=== PATIENT | female | born 1975 | race Caucasian/White ===

== ENCOUNTER 2017-02-08 16:33 | Emergency (ER) | payer BC, OTHER ==
[~2017-02-08] VITALS: Ht 170.2 cm; Wt 91.0 kg
[~2017-02-08 16:33] MED LIST: ALBU1AER9 INH; AMPH20TA2 PO; CLON0.5T3 PO; DIVA250T PO; FOLI1TAB7 PO; HYDR200T5 PO; IBUP-1050 PO; METF1TAB53 PO; METH2.5T PO; SERT100T PO
[2017-02-08 16:35] VITALS: TEMP 36.7; Ht 170.2 cm; Wt 91.0 kg
--- NOTE | 2017-02-08 16:54 | EMERGENCY ROOM VISIT NOTE ---
History Report prepared by Lisa: Rogelio Medley Under the Supervision of: Dr. Jesse Fletcher D.O. First contact with patient: 16:39 Chief Complaint: RESPIRATORY PROBLEMS Stated Complaint: CHEST/BACK PAIN,SOB History of Present Illness The patient is a 41 year old female who presents to the Emergency Room with complaints of worsening right sided rib pain beginning 5 days ago. She feels like she bruised her ribs, and is having shortness of breath and pain in her chest. The patient has a history of PE and was on blood thinners about 6 years ago, but is not currently on blood thinners. She has a history of lupus, factor V lieden, diabetes, and a recent abscess which is doing better. The patient has recently had an increase in her dosage of methotrexate. She denies having any nausea, vomiting, or abdominal pain, but notes she has cramping in her legs because she drives often, though adds this is not new. She admits to smoking tobacco, and reports a history of a hysterectomy due to a large fibroid tumor. She last saw her PCP, Dr. Roberson, 6 months ago. Source of History: patient Onset: 5 days ago Position: other (right sided ribs) Quality: other (rib pain) Timing: worsening Associated Symptoms: + SOB, + chest pain, No abdominal pain, No nausea, No vomiting Note: The patient reports leg cramping. Review of Systems See HPI for pertinent positives & negatives. A total of 10 systems reviewed and were otherwise negative. Past Medical & Surgical Medical Problems: (1) Back pain, lumbosacral (2) Bronchitis (3) Diabetes (4) Fibroids (5) Pelvic pain (6) Pulmonary embolism Family History Cancer Diabetes mellitus Hypertension Social History Smoking Status: Current Every Day Smoker Drug Use: none Marital Status: Housing Status: lives with family Current/Historical Medications Scheduled Divalproex Sodium (Depakote Er), 500 MG PO HS Folic Acid (Folvite), 1 TAB PO DAILY Hydroxychloroquine Sulfate (Plaquenil), 400 MG PO HS Metformin Hcl (Glucophage Ext Rel), 1,000 MG PO BID Methotrexate (Methotrexate), 20 MG PO WK Prednisone (Prednisone), 5 MG PO Q2D Sertraline Hcl (Zoloft), 200 MG PO HS Scheduled PRN Ibuprofen (Advil), 800 MG PO UD PRN for Pain Allergies Coded Allergies: No Known Allergies (Verified , NKA, 02/08/17) Physical Exam Vital Signs Date Time Temp Pulse Resp B/P Pulse Ox O2 Delivery O2 Flow Rate FiO2 02/08/17 17:54 113 18 127/74 97 Room Air 02/08/17 17:23 95 Room Air 02/08/17 17:20 95 Room Air 02/08/17 17:20 95 Room Air 02/08/17 16:52 108 02/08/17 16:35 36.7 87 18 116/78 95 Room Air Physical Exam GENERAL: Patient is awake alert, somewhat anxious appearing and uncomfortable. EYES: The conjunctivae are clear. The pupils are round and reactive. EARS, NOSE, MOUTH AND THROAT: The nose is without any evidence of any deformity. Mucous membranes are moist tongue is midline NECK: The neck is nontender and supple. RESPIRATORY: Normal respiratory effort is noted there is no evidence of wheezing rhonchi or rales CARDIOVASCULAR: Tachycardic but regular. No definite murmurs. GASTROINTESTINAL: The abdomen is soft. Bowel sounds are present in all quadrants. Abdomen is nontender MUSCULOSKELETAL/EXTREMITIES: There is no evidence of gross deformity full range of motion is noted in the hips and shoulders SKIN: There is no obvious evidence of any rash. There are no petechiae, pallor or cyanosis noted. NEUROLOGIC: Patient is awake alert and oriented x3 Medical Decision & Procedures ER Provider Diagnostic Interpretation: Radiology results as stated below per my review and radiologist interpretation: SINGLE VIEW CHEST FINDINGS: An AP, portable, upright chest radiograph is compared to study dated 07/23/2016. The cardiomediastinal silhouette is unremarkable. The lungs and pleural spaces are clear. No pneumothorax is seen. The bony thorax is grossly intact. IMPRESSION: No active disease in the chest. Electronically signed by: Talib Stephenson M.D. 02/08/2017 6:09 PM Dictated Date/Time: 02/08/2017 6:[address] ANGIOGRAM OF THE CHEST FINDINGS: Thyroid: Imaged portions of the thyroid gland are normal in size and attenuation. Thoracic aorta: The thoracic aorta is normal in caliber and demonstrates standard 3-vessel arch anatomy. No dissection is seen. Pulmonary vasculature: The pulmonary trunk is normal in caliber. There are no filling defects identified in main, lobar, or segmental pulmonary branches to suggest pulmonary embolus. Heart: The heart is normal in size and configuration, and without pericardial effusion. Lungs and pleural spaces: Emphysema is observed. There is no airspace consolidation or pleural effusion. The trachea and central airways are clear. Mediastinum: There is no mediastinal lymphadenopathy. Allyssa: Clear. Axillae: There is no axillary lymphadenopathy. Upper abdomen: Partially visualized upper abdominal viscera is within normal limits. Skeletal structures: No lytic or blastic bony lesions are seen. IMPRESSION: 1. There is no evidence of pulmonary embolus in the main, lobar, or segmental pulmonary arteries. 2. Emphysema. 3. No airspace consolidation or pleural effusion is seen. Electronically signed by: Talib Stephenson M.D. 02/08/2017 6:37 PM Dictated Date/Time: 02/08/2017 6:31 PM Laboratory Results 02/08/17 16:50 Red Blood Count 4.52, Mean Corpuscular Volume 88.7, Mean Corpuscular Hemoglobin 31.0, Mean Corpuscular Hemoglobin Concent 34.9, Mean Platelet Volume 8.6, Neutrophils (%) (Auto) 55.8, Lymphocytes (%) (Auto) 37.6, Monocytes (%) (Auto) 5.1, Eosinophils (%) (Auto) 1.1, Basophils (%) (Auto) 0.2, Neutrophils # (Auto) 5.31, Lymphocytes # (Auto) 3.58, Monocytes # (Auto) 0.49, Eosinophils # (Auto) 0.10, Basophils # (Auto) 0.02 02/08/17 16:50 Test 02/08/17 16:50 02/08/17 16:55 02/08/17 17:28 White Blood Count 9.52 K/uL (4.8-10.8) Red Blood Count 4.52 M/uL (4.2-5.4) Hemoglobin 14.0 g/dL (12.0-16.0) Hematocrit 40.1 % (37-47) Mean Corpuscular Volume 88.7 fL (80-100) Mean Corpuscular Hemoglobin 31.0 pg (25-34) Mean Corpuscular Hemoglobin Concent 34.9 g/dl (32-36) Platelet Count 309 K/uL (130-400) Mean Platelet Volume 8.6 fL (7.4-10.4) Neutrophils (%) (Auto) 55.8 % Lymphocytes (%) (Auto) 37.6 % Monocytes (%) (Auto) 5.1 % Eosinophils (%) (Auto) 1.1 % Basophils (%) (Auto) 0.2 % Neutrophils # (Auto) 5.31 K/uL (1.4-6.5) Lymphocytes # (Auto) 3.58 K/uL (1.2-3.4) Monocytes # (Auto) 0.49 K/uL (0.11-0.59) Eosinophils # (Auto) 0.10 K/uL (0-0.5) Basophils # (Auto) 0.02 K/uL (0-0.2) RDW Standard Deviation 46.8 fL (36.4-46.3) RDW Coefficient of Variation 14.4 % (11.5-14.5) Immature Granulocyte % (Auto) 0.2 % Immature Granulocyte # (Auto) 0.02 K/uL (0.00-0.02) Prothrombin Time 10.7 SECONDS (9.0-12.0) Prothromb Time International Ratio 1.0 (0.9-1.1) Activated Partial Thromboplast Time 27.7 SECONDS (21.0-31.0) Partial Thromboplastin Ratio 1.1 Anion Gap 14.0 mmol/L (3-11) Est Creatinine Clear Calc Drug Dose 65.3 ml/min Estimated GFR () 71.7 Estimated GFR (Non- 61.9 BUN/Creatinine Ratio 10.1 (10-20) Calcium Level 8.5 mg/dl (8.5-10.1) Total Bilirubin 0.2 mg/dl (0.2-1) Aspartate Amino Transf (AST/SGOT) 9 U/L (15-37) Alanine Aminotransferase (ALT/SGPT) 21 U/L (12-78) Alkaline Phosphatase 48 U/L (45-117) Troponin I < 0.015 ng/ml (0-0.045) Total Protein 7.6 gm/dl (6.4-8.2) Albumin 3.4 gm/dl (3.4-5.0) Globulin 4.2 gm/dl (2.5-4.0) Albumin/Globulin Ratio 0.8 (0.9-2) Bedside D-Dimer 353 ng/mlFEU (0-450) Urine Color YELLOW Urine Appearance CLEAR (CLEAR) Urine pH 5.0 (4.5-7.5) Urine Specific Tillson 1.020 (1.000-1.030) Urine Protein NEG (NEG) Urine Glucose (UA) 2+ (NEG) Urine Ketones TRACE (NEG) Urine Occult Blood NEG (NEG) Urine Nitrite NEG (NEG) Urine Bilirubin NEG (NEG) Urine Urobilinogen NEG (NEG) Urine Leukocyte Esterase NEG (NEG) Laboratory results per my review. Medications Administered Medications (Trade) Dose Ordered Sig/Tevin Route Start Time Stop Time Status Last Admin Dose Admin Sodium Chloride (Nss 1000ml) 1,000 ml @ 999 mls/hr Q1H1M STAT IV 02/08/17 17:50 02/08/17 18:50 DC 02/08/17 17:54 999 MLS/HR ECG Indication: chest pain Rate (beats per minute): 116 Rhythm: sinus tachycardia Findings: PVC, other (No acute ST segment abnormalities) ED Course 164: The patient was evaluated in room A11B. A complete history and physical examination were performed. 1749: Ordered NSS 1,000 ml @ 999 mls/hr IV. 1908: Ordered Toradol Inj 30 mg IV. 1914: Ordered Oxycodone HCl 1 homepack PO. 1929: Upon reevaluation, the patient is doing well. I discussed the results and treatment plan with the patient. She verbalized agreement of the treatment plan. The patient was discharged home. Medical Decision Differential diagnosis: Etiologies such as cardiac ischemia, aortic dissection, pulmonary embolism, pneumonia, pneumothorax, musculoskeletal, infections, pericarditis, myocarditis , esophageal rupture, gastrointestinal, as well as others were entertained. Nursing notes reviewed. The patient is a 41-year-old female has a history of lupus anticoagulant as well as systemic lupus who presented to the emergency apartment for an evaluation of chest pain. The patient has a history of pulmonary embolism and states that her symptoms are similar to previous episodes of pulmonary embolism. The patient was treated with IV fluids IV pain medication in the emergency department. She was reevaluated multiple times. Her d-dimer was negative but given her risk factors a CT the chest was obtained. I discussed the patient's laboratory radiographic studies with her. She was encouraged to rest and avoid any strenuous activity. She was encouraged to call her primary care physician to schedule a follow-up appointment. She was also encouraged to return to the emergency apartment immediately if symptoms change worsen or the need arises. I do feel that her symptoms are more likely consistent with pleuritic pain especially given her history of lupus. I discussed this with her. She does state that she has not had pleurisy in the past. This reason she was encouraged to definitely follow-up with her primary your physician as well as her consumer insight analyst. Impression Primary Impression: Right-sided chest pain Additional Impression: Pleurisy Scribe Attestation The scribe's documentation has been prepared under my direction and personally reviewed by me in its entirety. I confirm that the note above accurately reflects all work, treatment, procedures, and medical decision making performed by me. Departure Information Dispostion Home / Self-Care Referrals Tahir Roberson Jr,D.O. (PCP) Patient Instructions ED Chest Pain Atypical [facility], [facility], Pleurisy Additional Instructions Call your family doctor in the morning to schedule follow-up appointment. Rest and avoid any strenuous activity. Continue using Motrin and Tylenol as directed for pain. Continue all other medications as prescribed. Problem Qualifiers
[2017-02-08 17:04] LABS: BASO % 0.2 %; BASO ABS # 0.02 K/uL (0-0.2); COMPLETE YES; EOS % 1.1 %; HEMATOCRIT 40.1 % (37-47); IG% 0.2 %; LYMPH % 37.6 %; LYMPH ABS # 3.58 K/uL (1.2-3.4); MEAN CELL VOLUME 88.7 fL (80-100); MEAN CORPUSCULAR HGB CONC 34.9 g/dl (32-36); MEAN PLATELET VOLUME 8.6 fL (7.4-10.4); MONO % 5.1 %; NEUT % 55.8 %; PLATELET COUNT 309 K/uL (130-400); RED BLOOD COUNT 4.52 M/uL (4.2-5.4); WHITE BLOOD COUNT 9.52 K/uL (4.8-10.8)
[2017-02-08 17:18] LABS: PARTIAL THROMBOPLASTIN RATIO 1.1; PROTHROMBIN TIME (PATIENT) 10.7 SECONDS (9.0-12.0)
[2017-02-08 17:20] VITALS: O2SAT 95
[2017-02-08 17:20] LABS: ALT/SGPT 21 U/L (12-78); AST/SGOT 9 U/L (15-37); BLOOD UREA NITROGEN 11 mg/dl (7-18); BUN/CREATININE RATIO 10.1 (10-20); CALCIUM 8.5 mg/dl (8.5-10.1); CARBON DIOXIDE 24 mmol/L (21-32); CHLORIDE 105 mmol/L (98-107); GLUCOSE 186 mg/dl (70-99); POTASSIUM 3.3 mmol/L (3.5-5.1); SODIUM 143 mmol/L (136-145)
[2017-02-08] MEDS ORDERED: PRED-301 PO (17:21)
[2017-02-08 17:24] LABS: ALB/GLOB RATIO 0.8 (0.9-2); ALKALINE PHOSPHATASE 48 U/L (45-117)
[2017-02-08 17:42] LABS: URINE APPEARANCE CLEAR (CLEAR); URINE BILIRUBIN NEG (NEG); URINE COLOR YELLOW; URINE NITRITE NEG (NEG); UROBILINOGEN NEG (NEG)
[2017-02-08] MEDS ORDERED: SODIUM CHLORIDE 0.9% 1000ML 1,000 ML IV STA (17:50)
[2017-02-08 18:04] LABS: MANUAL MICROSCOPIC REQUIRED? NO; REVIEW REQ? NO
--- NOTE | 2017-02-08 18:11 | DIAGNOSTIC IMAGING REPORT ---
SINGLE VIEW CHEST CLINICAL HISTORY: Dyspnea. FINDINGS: An AP, portable, upright chest radiograph is compared to study dated 07/23/2016. The cardiomediastinal silhouette is unremarkable. The lungs and pleural spaces are clear. No pneumothorax is seen. The bony thorax is grossly intact. IMPRESSION: No active disease in the chest. Electronically signed by: Talib Stephenson M.D. 02/08/2017 6:09 PM Dictated Date/Time: 02/08/2017 6:09 PM
[2017-02-08] MEDS ORDERED: OPTIRAY 320 IV PRN (18:15)
--- NOTE | 2017-02-08 18:40 | DIAGNOSTIC IMAGING REPORT ---
CT ANGIOGRAM OF THE CHEST CLINICAL HISTORY: Atypical chest pain. Dyspnea. COMPARISON STUDY: Chest x-ray dated 02/08/2017. Chest CT dated 07/18/2010. TECHNIQUE: Following the IV administration of 108 cc of Optiray 320, CT angiogram of the chest was performed from the upper abdomen to the thoracic inlet utilizing the pulmonary embolus protocol. Images are reviewed in the axial, sagittal, and coronal planes. 3-D MIPS images are created and assessed. IV contrast was administered without complication. CT DOSE: 197.12 mGy.cm FINDINGS: Thyroid: Imaged portions of the thyroid gland are normal in size and attenuation. Thoracic aorta: The thoracic aorta is normal in caliber and demonstrates standard 3-vessel arch anatomy. No dissection is seen. Pulmonary vasculature: The pulmonary trunk is normal in caliber. There are no filling defects identified in main, lobar, or segmental pulmonary branches to suggest pulmonary embolus. Heart: The heart is normal in size and configuration, and without pericardial effusion. Lungs and pleural spaces: Emphysema is observed. There is no airspace consolidation or pleural effusion. The trachea and central airways are clear. Mediastinum: There is no mediastinal lymphadenopathy. Allyssa: Clear. Axillae: There is no axillary lymphadenopathy. Upper abdomen: Partially visualized upper abdominal viscera is within normal limits. Skeletal structures: No lytic or blastic bony lesions are seen. IMPRESSION: 1. There is no evidence of pulmonary embolus in the main, lobar, or segmental pulmonary arteries. 2. Emphysema. 3. No airspace consolidation or pleural effusion is seen. Electronically signed by: Talib Stephenson M.D. 02/08/2017 6:37 PM Dictated Date/Time: 02/08/2017 6:31 PM
[2017-02-08] MEDS ORDERED: KETOROLAC TROMETHAMINE 30 MG/ML VIAL IV STA (19:09)
[2017-02-08] MEDS ORDERED: OXYCODONE IR HOME PACK PO ONE (19:15)
[2017-02-08 19:48] VITALS: BP 116/76; PULSE 97; O2SAT 94
== END 2017-02-08 19:51 | disposition home or self-care (01) ==
LOC: C.EDB 16:34 → C.EDA 19:51
DX: R07.9 Chest pain, unspecified (principal); R09.1 Pleurisy; R00.0 Tachycardia, unspecified; E11.9 Type 2 diabetes mellitus without complications; F17.200 Nicotine dependence, unspecified, uncomplicated; Z86.711 Personal history of pulmonary embolism; Z79.84 Long term (current) use of oral hypoglycemic drugs; Z79.899 Other long term (current) drug therapy; Z80.9 Family history of malignant neoplasm, unspecified; Z83.3 Family history of diabetes mellitus; Z82.49 Family history of ischemic heart disease and other diseases of the circulatory system

== ENCOUNTER → 2018-05-12 | Outpatient (CLI) | payer BC ==
[~2018-05-12] MED LIST changes: -ALBU1AER9 INH; -AMPH20TA2 PO; -CLON0.5T3 PO; -FOLI1TAB7 PO; +FOLI1TAB8 PO; +PRED-301 PO
== END | disposition home or self-care (01) ==
LOC: C.LAB 12:00
DX: E11.9 Type 2 diabetes mellitus without complications (principal)